=== PATIENT | male | born 1975 | race Caucasian/White ===

== ENCOUNTER 2022-09-18 10:12 | Outpatient (REF) | payer OTHER, SELFPAY ==
--- NOTE | ~2022-09-18 | XR_ITS ---
EXAMINATION: XR ANKLE, LEFT CLINICAL INFORMATION: Pain in left ankle and joints of the left foot COMPARISON: None available. TECHNIQUE: AP, lateral, and mortise views of the left ankle. FINDINGS: Osseous alignment is anatomic. No acute fracture is seen. There is hypertrophic spurring of the medial and lateral malleoli. There is additional spurring at the superior aspect of the talus. Posterior calcaneal spur is noted. Degenerative changes with joint space narrowing and spurring in the visualized mid foot. Mild soft tissue swelling at the ankle. There is nonspecific faint calcification in the plantar aspect of the proximal foot, possibly myositis ossificans. XR/XR ankle LT min 3V IMPRESSION: No acute osseous findings. Chronic appearing and degenerative changes as noted above.
[2022-09-18 10:32] LABS: MANUAL DIFF FLAG NO
[2022-09-18 10:51] LABS: Basophils Absolute Auto 0.1 X10*3/uL (0.0-0.2); Basophils Percent Auto 0.5 % (0-2); Eosinophils Absolute Auto 0.1 X10*3/uL (0.0-0.4); Eosinophils Percent Auto 0.4 % (0-4); Hematocrit 54.7 % (42.0-52.0); Hemoglobin 18.3 g/dl (14.0-18.0); Imm Gran Abs Auto 0.05 X10*3/uL (0.00-0.03); Imm Gran Pct Auto 0.4 % (0.0-0.4); Lymphocytes Absolute Auto 2.9 X10*3/uL (1.2-4.9); Lymphocytes Percent Auto 20.3 % (20-40); Mean Corpuscular HGB Conc 33.5 g/dl (31.0-36.0); Mean Corpuscular Hemoglobin 29.5 pg (27.0-33.0); Mean Corpuscular Volume 88.2 fL (80.0-98.0); Mean Platelet Volume 11.1 fL (9.4-12.4); Monocytes Percent Auto 7.2 % (2-11); Neutrophils Absolute Auto 10.1 x10*3/uL (2.0-8.3); Neutrophils Percent Auto 71.2 % (45-73); Platelet Count 261 X10*3/uL (160-400); Red Cell Distribution Width 12.7 % (11.0-16.0); White Blood Count 14.1 X10*3/uL (4.8-10.8)
[2022-09-18 11:17] LABS: Alanine Aminotransferase 27 U/L (0-40); Alkaline Phosphatase 55 U/L (39-117); Anion Gap 16 (12-20); Aspartate Amino Transferase 15 U/L (5-37); Bilirubin Total 0.9 mg/dL (0.0-1.0); Blood Urea Nitrogen 10 mg/dL (9-16); Calcium 10.7 mg/dL (8.4-10.2); Carbon Dioxide 28 mmol/L (22-29); Chloride 103 mmol/L (96-108); Estimated Glomerular Filt Rate > 60; Glucose Random 114 mg/dL (60-115); Potassium 5.1 mmol/L (3.3-5.1); Sodium 142 mmol/L (135-145); Total Protein 8.4 g/dL (6.5-8.0); Uric Acid 7.6 mg/dL (3.4-7.0)
[2022-09-18 11:39] LABS: Erythrocyte Sedimentation Rate 5 MM/HR (0-15)
== END 2022-09-18 10:13 | disposition home or self-care (01) ==
LOC: HO.LAB 10:12
PROVIDERS: PCP Family Medicine; Visit Provider Family Medicine
DX: Z00.00 Encounter for general adult medical examination without abnormal findings (principal); M25.572 Pain in left ankle and joints of left foot
CPT/HCPCS: 36415; 73610; 80053; 84550; 85025; 85652

== ENCOUNTER 2022-09-22 10:29 | Outpatient (REF) | payer OTHER, SELFPAY ==
[2022-09-22 11:36] LABS: MANUAL DIFF FLAG NO
[2022-09-22 11:45] LABS: Basophils Absolute Auto 0.1 X10*3/uL (0.0-0.2); Basophils Percent Auto 0.7 % (0-2); Eosinophils Absolute Auto 0.2 X10*3/uL (0.0-0.4); Hematocrit 52.7 % (42.0-52.0); Hemoglobin 18.1 g/dl (14.0-18.0); Imm Gran Abs Auto 0.09 X10*3/uL (0.00-0.03); Imm Gran Pct Auto 0.6 % (0.0-0.4); Lymphocytes Absolute Auto 4.8 X10*3/uL (1.2-4.9); Mean Corpuscular HGB Conc 34.3 g/dl (31.0-36.0); Mean Corpuscular Hemoglobin 30.3 pg (27.0-33.0); Mean Corpuscular Volume 88.1 fL (80.0-98.0); Mean Platelet Volume 11.5 fL (9.4-12.4); Monocytes Absolute Auto 1.3 X10*3/uL (0.1-1.2); Monocytes Percent Auto 8.4 % (2-11); Neutrophils Absolute Auto 9.5 x10*3/uL (2.0-8.3); Neutrophils Percent Auto 59.3 % (45-73); Platelet Count 290 X10*3/uL (160-400); Red Blood Count 5.98 X10*6/uL (4.60-5.80); Red Cell Distribution Width 12.7 % (11.0-16.0)
[2022-09-22 12:36] LABS: Alanine Aminotransferase 27 U/L (0-40); Albumin Level 4.7 g/dL (3.5-5.0); Alkaline Phosphatase 51 U/L (39-117); Anion Gap 15 (12-20); Aspartate Amino Transferase 14 U/L (5-37); Bilirubin Total 0.7 mg/dL (0.0-1.0); Blood Urea Nitrogen 13 mg/dL (9-16); Calcium 9.9 mg/dL (8.4-10.2); Carbon Dioxide 28 mmol/L (22-29); Chloride 102 mmol/L (96-108); Estimated Glomerular Filt Rate > 60; Glucose Random 89 mg/dL (60-115); Potassium 4.4 mmol/L (3.3-5.1); Sodium 141 mmol/L (135-145); Total Protein 7.9 g/dL (6.5-8.0)
== END 2022-09-22 10:30 | disposition home or self-care (01) ==
LOC: HO.WFDLDS 10:29
PROVIDERS: Visit Provider Family Medicine
DX: Z00.00 Encounter for general adult medical examination without abnormal findings (principal); M25.572 Pain in left ankle and joints of left foot
CPT/HCPCS: 36415; 80053; 84550; 85025

== ENCOUNTER 2023-02-24 14:22 | Outpatient (REF) | payer OTHER, SELFPAY ==
--- NOTE | ~2023-02-24 | XR_ITS ---
EXAMINATION: XR LUMBOSACRAL SPINE CLINICAL INFORMATION: Low back pain COMPARISON: None available. TECHNIQUE: Three views of the lumbosacral spine. FINDINGS: There is mild levoscoliosis. There is mild wedge-shaped deformity of L1 vertebral body with marginal spurring may be related to fracture of indeterminate age. There is mild narrowing of L1-L2 and L2-L3 intervertebral disc space and marginal spurring of L1-L3. There is no evidence of spondylolysis or spondylolisthesis. Pedicles are preserved. XR/XR lumbar spine 2-3V IMPRESSION: Mild degenerative changes at the level of L1-L2 and L2-L3. Mild wedge-shaped deformity of L1 vertebral body of indeterminate age.
--- NOTE | ~2023-02-24 | XR_ITS ---
EXAMINATION: XR THORACOLUMBAR SPINE CLINICAL INFORMATION: Dorsalgia COMPARISON: None available. TECHNIQUE: AP and lateral and swimmer's view of thoracic spine FINDINGS: The vertebral alignment is normal. No intrinsic bony abnormality. The disc heights and neural foramina are well maintained. The endplates and posterior elements are normal. No fracture or subluxation. The surrounding prevertebral soft tissues are unremarkable. XR/XR thoracic spine 2V IMPRESSION: No compression fractures or subluxations are identified. The disc spaces are preserved. No endplate changes are seen. The prevertebral soft tissues are normal. The foramina are patent.
[2023-02-24 14:35] LABS: MANUAL DIFF FLAG NO
[2023-02-24 14:45] LABS: Basophils Absolute Auto 0.1 X10*3/uL (0.0-0.2); Basophils Percent Auto 0.9 % (0-2); Eosinophils Absolute Auto 0.3 X10*3/uL (0.0-0.4); Eosinophils Percent Auto 2.6 % (0-4); Hemoglobin 19.2 g/dl (14.0-18.0); Imm Gran Abs Auto 0.03 X10*3/uL (0.00-0.03); Imm Gran Pct Auto 0.3 % (0.0-0.4); Lymphocytes Absolute Auto 3.1 X10*3/uL (1.2-4.9); Lymphocytes Percent Auto 29.3 % (20-40); Mean Corpuscular HGB Conc 34.7 g/dl (31.0-36.0); Mean Corpuscular Hemoglobin 30.8 pg (27.0-33.0); Mean Corpuscular Volume 88.8 fL (80.0-98.0); Mean Platelet Volume 11.7 fL (9.4-12.4); Monocytes Absolute Auto 0.8 X10*3/uL (0.1-1.2); Neutrophils Absolute Auto 6.4 x10*3/uL (2.0-8.3); Neutrophils Percent Auto 59.9 % (45-73); Platelet Count 246 X10*3/uL (160-400); Red Blood Count 6.24 X10*6/uL (4.60-5.80); Red Cell Distribution Width 13.1 % (11.0-16.0); White Blood Count 10.7 X10*3/uL (4.8-10.8)
[2023-02-24 14:47] LABS: Hematocrit 55.4 % (42.0-52.0)
[2023-02-24 15:07] LABS: Appearance Urine Clear; Color Urine Yellow; Glucose Urine UA Negative (Negative); Leukocyte Esterase Urine Negative (Negative); Nitrite Urine Negative (Negative); PH 8.5 (5.0-9.0); Specific Gravity - Urine 1.015 (1.005-1.025); Urine Blood Negative (Negative); Urine Ketones Negative (Negative); Urine Protein Negative (Neg-Trace)
[2023-02-24 15:23] LABS: Alanine Aminotransferase 43 U/L (0-40); Albumin Level 4.7 g/dL (3.5-5.0); Alkaline Phosphatase 45 U/L (39-117); Anion Gap 13 (12-20); Aspartate Amino Transferase 20 U/L (5-37); Bilirubin Total 0.6 mg/dL (0.0-1.0); Blood Urea Nitrogen 10 mg/dL (9-16); Calcium 10.6 mg/dL (8.4-10.2); Carbon Dioxide 28 mmol/L (22-29); Chloride 106 mmol/L (96-108); Cholesterol 162 mg/dL (<200); Estimated Glomerular Filt Rate > 60; Glucose Fasting 121 mg/dL (60-99); HDL Cholesterol 27 mg/dL (>40); LDL Cholesterol Calculated 84 mg/dL (<100); Potassium 4.1 mmol/L (3.3-5.1); Sodium 143 mmol/L (135-145); Triglycerides 258 mg/dL (<150); Uric Acid 9.5 mg/dL (3.4-7.0)
[2023-02-24 15:32] LABS: Prostate Specific Antigen Scr 0.59 ng/mL (<0.05-4.0)
[2023-02-24 15:38] LABS: TSH reflex Free T4 1.12 uIU/mL (0.32-4.0)
[2023-02-24 17:04] LABS: Creatinine Urine 178.29 mg/dL; Microalbum/Creatinine Ratio Ur 7.2 ug/mg cr (<30)
== END 2023-02-24 14:23 | disposition home or self-care (01) ==
LOC: HO.LAB 14:22
PROVIDERS: PCP Family Medicine; Visit Provider Family Medicine
DX: M54.9 Dorsalgia, unspecified (principal); Z12.5 Encounter for screening for malignant neoplasm of prostate; Z00.00 Encounter for general adult medical examination without abnormal findings; I10 Essential (primary) hypertension; M10.9 Gout, unspecified
CPT/HCPCS: 36415; 72070; 72100; 80053; 80061; 81003; 82043; 84153; 84443; 84550; 85025

== ENCOUNTER 2023-02-26 13:27 | Outpatient (AMB) | payer OTHER, SELFPAY ==
[2023-02-26 13:37] VITALS: BP 124/72; PULSE 99; O2SAT 96; BMI 39.9
--- NOTE | 2023-02-26 13:37 | A.OFFPC_ITS ---
Vital Signs 02/26/23 13:37 Height 6 ft 2 in Weight 311 lb 2 oz BMI 39.9 BP 124/72 Blood Pressure Location Lt brachial Position Sitting Pulse 99 Pulse Source Pulse Oximeter Pulse Oximetry (%) 96 Oxygen Delivery Method Room Air Intake Visit Reasons: worsening pain Intake Note: Patient is here with worsening pain, going to hip joint into groin, worse in the morning, Thursday and Thursday hurt all day, and was in pain in the morning, but then as the day does on he feels better. 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 Allergies Penicillins Allergy (Severe, Verified 02/26/23 13:43) Anaphylaxis opiates Adverse Reaction (Severe, Uncoded 02/26/23 13:45) addiction temptaion Tobacco use date assessed: 02/26/23 Dental Screening Dental Screen Date: 02/26/23 Did you have a dental visit in the last 12 months?: No Did you have a dental problem in the last 6 months where you did not have access to dental care?: No Was dental information given to patient?: Yes HPI worsening pain HPI Details 47 y/o male presents with complaints of worsening pain. Last labs drawn 02/24/23. Uric acid level worsened from 8.0 to 9.5 mg/dL. Elevated ALT of 43. Elevated Triglycerides 258. TC 162. LDL 84. HDL low at 27. Pt reports worsening pain going to hip joint and into groin. 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 Pt has complaints of a fungal toenail infection. HPI Comments History of Present Illness Details Documentation assistance for Dell Rice MD, was provided by Jalil Cleary, [employer] on 02/26/2023 1:46 PM LYN. I, Dr. Rice, have read, observed, and verified documentation. [facility] Medical History No pertinent past medical history Surgical History No pertinent past surgical history Family History Paternal Grandfather Diabetes Father Lymph node cancer Social History Household Members Other:: mother Housing: House Alcohol intake: never Patient Tobacco Use Status: Current everyday Tobacco user Cigarettes Per Day: 10 e-Cigarette/Vaping Use: Never Used Substance Use Type: Marijuana service: No Current occupational status: unemployed Current occupation: [employer] Cognitive needs: No Hearing needs: No Vision needs: No Review of Systems Const Denies chills, Denies fatigue, Denies fever(s), Denies headache(s) and Denies weakness ENT Denies dizziness and Denies headache(s) Card Denies dyspnea Resp Denies cough, Denies dyspnea, Denies wheezing and Denies other (shortness of breath) Musc Denies numbness and Denies tingling Neuro Denies dizziness, Denies headache(s), Denies numbness, Denies tingling and Denies weakness Psych Denies anxiety and Denies depression Endo Denies fatigue Aller/Immun Denies wheezing Physical exam (Primary Care) Vital Signs: Last Vital Signs Pulse 99 02/26/23 13:37 BP 124/72 02/26/23 13:37 Pulse Ox 96 02/26/23 13:37 Oxygen Delivery Method Room Air 02/26/23 13:37 BMI result Body Mass Index 39.9 Tobacco/Smoking Status: Tobacco use Status Tobacco use date assessed 12/23/22 02/26/23 13:46 Patient Tobacco Use Status Current everyday Tobacco 02/26/23 13:46 e-Cigarette/Vaping Use Never Used 02/26/23 13:48 Const General: well developed; No acute distress Nutritional Appearance: obese Orientation/consciousness: patient oriented x3 HENMT Head: Yes normocephalic and Yes atraumatic Eyes General: appearance normal, both eyes and all related structures Pupils: Equal, round and reactive pupils present EOM: EOMs intact bilaterally Resp Effort & Inspection: normal respiratory effort Neuro General: patient oriented x3 and gait normal Cranial nerves: Yes Equal, round and reactive pupils present Psych Affect: normal affect Assessment and Plan Assessment & Plan (1) Left groin pain: Code(s): R10.32 - Left lower quadrant pain Plan: This appears to be a muscular strain Can use meloxicam after prednisone taper and will start physical therapy (2) Gout: Code(s): M10.9 - Gout, unspecified Plan: Starting prednisone taper and allopurinol (3) Back pain: Code(s): M54.9 - Dorsalgia, unspecified Plan: Ongoing severe back pain. X rays show degenerative changes. Will give him a prednisone taper and he can and then resume meloxicam (4) Fungal toenail infection: Code(s): B35.1 - Tinea unguium Plan: Refilled terbinafine and will refer to Podiatry Orders: Orders PT Evaluation and Treatment Today R10.32 - Left lower quadrant pain Referrals Podiatry Referral B35.1 - Tinea unguium Medications: New prednisone 4 tabs daily for 4 days, 3 tabs daily for 2 days, 2 tabs daily for 2 days, 1 tab daily for 2 days PO daily; 28 tabs 0RF 10 days allopurinol 200 mg (2 x 100 mg) PO DAILY 60 tabs 2RF 30 days Refilled meloxicam 15 mg PO DAILY 30 tabs 2RF 30 days M25.572 - Pain in left ankle and joints of left foot terbinafine HCl 1% (Antifungal (terbinafine)) 1 appl topical BID 30 grams 2RF 30 days Coding Level of Care Code Est Pt Level 4 (81934) Diagnoses Left groin pain R10.32 Gout M10.9 Back pain M54.9 Fungal toenail infection B35.1
== END 2023-02-26 14:17 | disposition home or self-care (01) ==
PROVIDERS: PCP Family Medicine; Visit Provider Family Medicine
DX: R10.32 Left lower quadrant pain (principal); M10.9 Gout, unspecified; M54.9 Dorsalgia, unspecified; B35.1 Tinea unguium
CPT/HCPCS: 99214

== ENCOUNTER → 2024-08-10 15:09 | Outpatient (BNVA) | payer OTHER, SELFPAY | PROVIDERS: PCP Family Medicine; Visit Provider Physician Assistant | DX: Z00.00 Encounter for general adult medical examination without abnormal findings (principal); M10.9 Gout, unspecified; R03.0 Elevated blood-pressure reading, without diagnosis of hypertension; E78.5 Hyperlipidemia, unspecified | CPT/HCPCS: 96127 ==

== ENCOUNTER 2024-08-20 09:46 | Outpatient (REF) | payer OTHER, SELFPAY ==
[2024-08-20 09:59] LABS: MANUAL DIFF FLAG NO
[2024-08-20 10:42] LABS: Basophils Absolute Auto 0.1 X10*3/uL (0.0-0.2); Basophils Percent Auto 1.7 % (0-2); Eosinophils Absolute Auto 0.4 X10*3/uL (0.0-0.4); Eosinophils Percent Auto 5.3 % (0-4); Hemoglobin 18.2 g/dl (14.0-18.0); Imm Gran Abs Auto 0.03 X10*3/uL (0.00-0.03); Imm Gran Pct Auto 0.4 % (0.0-0.4); Lymphocytes Absolute Auto 2.4 X10*3/uL (1.2-4.9); Mean Corpuscular Hemoglobin 31.1 pg (27.0-33.0); Mean Corpuscular Volume 88.7 fL (80.0-98.0); Monocytes Absolute Auto 0.8 X10*3/uL (0.1-1.2); Monocytes Percent Auto 10.3 % (2-11); Neutrophils Absolute Auto 4.2 x10*3/uL (2.0-8.3); Neutrophils Percent Auto 52.3 % (45-73); Platelet Count 222 X10*3/uL (160-400); Red Blood Count 5.86 X10*6/uL (4.60-5.80); Red Cell Distribution Width 12.6 % (11.0-16.0); White Blood Count 8.1 X10*3/uL (4.8-10.8)
[2024-08-20 10:48] LABS: Appearance Urine Clear; Color Urine Yellow; Glucose Urine UA Negative (Negative); Leukocyte Esterase Urine Negative (Negative); Nitrite Urine Negative (Negative); PH 5.5 (5.0-9.0); Specific Gravity - Urine 1.015 (1.005-1.025); Urine Blood Negative (Negative); Urine Ketones Negative (Negative); Urine Protein Negative (Neg-Trace)
[2024-08-20 11:12] LABS: Alanine Aminotransferase 42 U/L (0-40); Albumin Level 4.5 g/dL (3.5-5.0); Alkaline Phosphatase 54 U/L (39-117); Anion Gap 14 (12-20); Aspartate Amino Transferase 28 U/L (5-37); Bilirubin Total 0.6 mg/dL (0.0-1.0); Blood Urea Nitrogen 16 mg/dL (9-16); Calcium 10.3 mg/dL (8.4-10.2); Carbon Dioxide 27 mmol/L (22-29); Chloride 106 mmol/L (96-108); Cholesterol 167 mg/dL (<200); Estimated Glomerular Filt Rate > 60; Glucose Fasting 108 mg/dL (60-99); HDL Cholesterol 26 mg/dL (>40); LDL Cholesterol Calculated 99 mg/dL (<100); Potassium 4.8 mmol/L (3.3-5.1); Sodium 142 mmol/L (135-145); Total Protein 8.4 g/dL (6.5-8.0); Triglycerides 212 mg/dL (<150)
[2024-08-20 11:27] LABS: Prostate Specific Antigen Scr 0.57 ng/mL (<0.05-4.0)
[2024-08-20 11:32] LABS: TSH reflex Free T4 1.26 uIU/mL (0.32-4.0)
[2024-08-20 12:04] LABS: Uric Acid 7.9 mg/dL (3.4-7.0)
== END 2024-08-20 09:47 | disposition home or self-care (01) ==
LOC: HO.LAB 09:46
PROVIDERS: PCP Family Medicine; Visit Provider Physician Assistant
DX: Z00.00 Encounter for general adult medical examination without abnormal findings (principal); M10.9 Gout, unspecified; R03.0 Elevated blood-pressure reading, without diagnosis of hypertension; E78.5 Hyperlipidemia, unspecified; Z13.220 Encounter for screening for lipoid disorders; Z01.89 Encounter for other specified special examinations; Z12.5 Encounter for screening for malignant neoplasm of prostate
CPT/HCPCS: 36415; 80053; 80061; 81003; 84153; 84443; 84550; 85025

== ENCOUNTER 2024-08-24 14:11 | Outpatient (AMB) | payer OTHER, SELFPAY ==
--- NOTE | 2024-08-24 14:18 | MHC.PC.OV ---
Vital Signs 08/24/24 14:20 08/24/24 14:27 Height 6 ft 2 in Weight 329 lb 8 oz BMI 42.3 BP 154/90 H 152/92 H Blood Pressure Location Lt brachial Lt brachial Position Sitting Sitting Respiration 18 Pulse 101 H Pulse Source Pulse Oximeter Pulse Oximetry (%) 96 Oxygen Delivery Method Room Air Intake Visit Reasons: bp and labs Intake Note: Follow up blood pressure and lab results. Allergies Penicillins Allergy (Severe, Verified 08/24/24 14:20) Anaphylaxis opiates Adverse Reaction (Severe, Uncoded 08/24/24 14:20) addiction temptaion Medication List - Last Reconciled 08/24/24 by Valarie Roberts PA-C allopurinol 200 mg (2 x 100 mg) PO DAILY 90 days Tobacco use date assessed: 08/10/24 Dental Screening Dental Screen Date: 02/26/23 HPI bp and labs HPI Details Patient is a 49-year-old male with a significant past history hyperlipidemia substance abuse, smoker, gout presenting today for a follow up. He normally follows with Dr. Rice. CV: Blood pressure today in the office is elevated at 154/90. He has never been on antihypertensives before. At our last visit he was referred for a sleep study for suspected sleep apnea and is scheduled for October. Psych: Currently off of methadone for a year and a half. He does not like the idea of taking any medications. He is still smoking marijuana and tobacco. States that he wants to stop smoking cigarettes but does not want any medication for this. He is going to look into hypnosis. Musculoskeletal: He is on allopurinol for management of gout. Last uric acid was elevated. Endo: Last A1c came back at 5.8. Blood sugar has been elevated intermittently since 2022. States that he is [place] and eats a lot of carbohydrates. Colonoscopy: Overdue-was referred [facility] Medical History (Updated 08/24/24 @ 14:58 by Valarie Roberts PA-C) No history of major surgery within 1 month No pertinent past medical history Surgical History No pertinent past surgical history Family History Paternal Grandfather Diabetes Father Lymph node cancer Social History (Updated 08/24/24 @ 14:20 by Arielle Monzon CMA) Household Members Other:: mother Housing: House Alcohol intake: current Comment: 1-2 time a year Patient Tobacco Use Status: Current everyday Tobacco user Cigarettes Per Day: 10 Years Smoked: 18 e-Cigarette/Vaping Use: Never Used Substance Use Type: Marijuana service: No Current occupational status: unemployed Current occupation: [employer] Cognitive needs: No Hearing needs: No Vision needs: No Questionnaire Thrive Questionnaire Date Thrive assessed: 07/20/24 I am a: Patient What is your living situation today?: I have a steady place to live Within the past 12 months, did the food you bought not last and you didn't have the money to get more?: Never true Within the past 12 months, did you worry whether your food would run out before you got money to buy more?: Never true Do you have trouble paying for medicines?: No Do you have trouble getting transportation to medical appointments?: No Do you have trouble paying your heating and electricity bill?: No Do you have trouble taking care of your child, family member or friend?: No Do you have trouble with day-to-day activities such as bathing, preparing meals, shopping, managing finances, etc.?: No Are you currently unemployed and looking for a job?: No Are you interested in more education?: No Please select the resources that you would like help with: None Currently or been in a relationship where the following occur: No concerns reported THRIVE Score: 0 NEETA-7 AMB Questionnaire NEETA-7 Date NEETA - 7 assessed: 08/10/24 Source: Developed by Drs. Eron Gonzalez, Bhakti Neal, Vijay Wood and colleagues, with an educational jayesh from [employer]. Physical exam (Primary Care) Vital Signs: Last Vital Signs Pulse 101 H 08/24/24 14:20 Resp 18 08/24/24 14:20 BP 154/90 H 08/24/24 14:20 Pulse Ox 96 08/24/24 14:20 Oxygen Delivery Method Room Air 08/24/24 14:20 BMI result Body Mass Index 42.3 Tobacco/Smoking Status: Tobacco use Status Tobacco use date assessed 08/10/24 08/24/24 14:24 Patient Tobacco Use Status Current everyday Tobacco 08/24/24 14:24 e-Cigarette/Vaping Use Never Used 08/24/24 14:24 Thrive Assessment: Date of Thrive Assessment Date Thrive assessed 07/20/24 08/24/24 14:24 Currently or been in a relationship where the following occur: No concerns reported Const Orientation/consciousness: patient oriented x3 HENMT Ears: hearing grossly normal bilaterally Neck Thyroid: Thyroid normal Lymphatic: no lymphadenopathy noted Resp Auscultation: clear to auscultation bilaterally Cardio Rate: regular rate Rhythm: regular rhythm Heart sounds: S1 normal heart sound present and S2 normal heart sound present GI Inspection: Yes normal to inspection Palpation (GI): Soft to palpation and Other GI palpation findings present (nontender, no cva tenderness) Auscultation: normoactive bowel sounds Rectal Exam - Male: Yes deferred Skin General skin exam: no rashes or lesions noted Neuro General: patient oriented x3, gait normal and no focal motor deficits Results AMB Hemoglobin A1c AMB Hemoglobin A1c 5.8 % Last Edit by Arielle Monzon CMA on 08/24/24 14:58 Results Reviewed Results Reviewed: Laboratory Tests 08/20/24 09:58 WBC 8.1 RBC 5.86 H Hgb 18.2 H Plt Count 222 Sodium 142 Potassium 4.8 Chloride 106 Carbon Dioxide 27 Anion Gap 14 BUN 16 Creatinine 0.98 Estimated GFR > 60 Uric Acid 7.9 H Calcium 10.3 H Total Bilirubin 0.6 AST 28 ALT 42 H Alkaline Phosphatase 54 Total Protein 8.4 H Albumin 4.5 Triglycerides 212 H Cholesterol 167 LDL Cholesterol, Calc 99 HDL Cholesterol 26 L PSA Screen 0.57 TSH 1.26 Coding Level of Care Code Est Pt Level 4 (30898) Complex EM visit Add On G2211 Diagnoses Dyslipidemia E78.5 Elevated LFTs R79.89 HTN (hypertension) I10 Prediabetes R73.03 Assessment & Plan Assessment & Plan (1) Dyslipidemia: Code(s): E78.5 - Hyperlipidemia, unspecified Category: Medical Plan: We will monitor. He is going to work on a low-fat diet. I have referred him to nutrition. (2) Elevated LFTs: Code(s): R79.89 - Other specified abnormal findings of blood chemistry Category: Medical Plan: Labs ordered today. We will monitor. Ultrasound ordered. (3) HTN (hypertension): Code(s): I10 - Essential (primary) hypertension Category: Medical Plan: Elevated. We will start on lisinopril. Discussed risks and benefits and adverse effects of the medication. We will rechecked blood pressure in a few weeks. (4) Prediabetes: Code(s): R73.03 - Prediabetes Category: Medical Plan: A1c 5.8 today. Working on reducing carbohydrate and sugar intake. Referral to house calls nurse practitioner. Orders: Orders Ferritin Today E78.5 - Hyperlipidemia, unspecified, I10 - Essential (primary) hypertension, R79.89 - Other specified abnormal findings of blood chemistry Liver Panel Today E78.5 - Hyperlipidemia, unspecified, I10 - Essential (primary) hypertension, R79.89 - Other specified abnormal findings of blood chemistry Gamma Glutamyl Transpeptidase Today E78.5 - Hyperlipidemia, unspecified, I10 - Essential (primary) hypertension, R79.89 - Other specified abnormal findings of blood chemistry Hepatitis B Surface Antigen Today E78.5 - Hyperlipidemia, unspecified, I10 - Essential (primary) hypertension, R79.89 - Other specified abnormal findings of blood chemistry AMB Hemoglobin A1c Today E11.65 - Type 2 diabetes mellitus with hyperglycemia Complete Blood Count Auto Diff Today E78.5 - Hyperlipidemia, unspecified, I10 - Essential (primary) hypertension, R79.89 - Other specified abnormal findings of blood chemistry DNA Analysis Hemochromatosis Today E78.5 - Hyperlipidemia, unspecified, I10 - Essential (primary) hypertension, R79.89 - Other specified abnormal findings of blood chemistry IRON PROFILE Today E78.5 - Hyperlipidemia, unspecified, I10 - Essential (primary) hypertension, R79.89 - Other specified abnormal findings of blood chemistry US abdomen comp w elastography Today E78.5 - Hyperlipidemia, unspecified, I10 - Essential (primary) hypertension, R79.89 - Other specified abnormal findings of blood chemistry Hepatitis C Antibody Today E78.5 - Hyperlipidemia, unspecified, I10 - Essential (primary) hypertension, R79.89 - Other specified abnormal findings of blood chemistry Referrals [employer] Nutrition Referral E78.5 - Hyperlipidemia, unspecified, I10 - Essential (primary) hypertension, R73.03 - Prediabetes, R79.89 - Other specified abnormal findings of blood chemistry Medications: New allopurinol 300 mg PO DAILY 90 tabs 2RF lisinopril 10 mg PO DAILY 90 tabs 0RF Discontinued allopurinol Discontinued Reason: Doctor's Order 200 mg (2 x 100 mg) PO DAILY 90 days 180 tabs 3RF Patient Instructions: Your labs show that you are a prediabetic. This means that you are at risk for developing diabetes. You need to work on reducing your carbohydrate and sugar intake as we talked about. Your liver function tests were also a little bit elevated so I do want you to avoid processed foods, fried foods, greasy foods as well and alcohol. I have put in a referral to the house calls nurse practitioner. I have ordered a liver ultrasound and additional labs to look at the liver test. I am also testing you for excess iron. You can do your blood work today as it does not need to be fasting. I am starting you on lisinopril which is a blood pressure medication. You take it once a day around the same time each day. I will see you back in a few weeks to make sure your blood pressure is responding. If for some reason you are unable to tolerate this medication, call me sooner. I have increased your allopurinol as well given your uric acid was 7.9 which is still considered high.
[2024-08-24 14:20] VITALS: BP 154/90; PULSE 101; RESP 18; O2SAT 96; BMI 42.3
[2024-08-24 14:27] VITALS: BP 152/92
== END 2024-08-24 15:07 | disposition home or self-care (01) ==
PROVIDERS: PCP Family Medicine; Visit Provider Physician Assistant
DX: E78.5 Hyperlipidemia, unspecified (principal); R79.89 Other specified abnormal findings of blood chemistry; I10 Essential (primary) hypertension; R73.03 Prediabetes; E11.65 Type 2 diabetes mellitus with hyperglycemia

== ENCOUNTER → 2024-08-24 14:11 | Outpatient (BNVA) | payer OTHER, SELFPAY | PROVIDERS: PCP Family Medicine; Visit Provider Physician Assistant | DX: R73.03 Prediabetes (principal); E78.5 Hyperlipidemia, unspecified; R79.89 Other specified abnormal findings of blood chemistry; I10 Essential (primary) hypertension; M10.9 Gout, unspecified; Z79.899 Other long term (current) drug therapy | CPT/HCPCS: 83036 ==

== ENCOUNTER 2024-08-24 15:25 | Outpatient (REF) | payer OTHER, SELFPAY ==
[2024-08-24 18:04] LABS: MANUAL DIFF FLAG NO
[2024-08-24 18:30] LABS: Basophils Absolute Auto 0.1 X10*3/uL (0.0-0.2); Basophils Percent Auto 1.4 % (0-2); Eosinophils Absolute Auto 0.4 X10*3/uL (0.0-0.4); Eosinophils Percent Auto 4.6 % (0-4); Hematocrit 50.3 % (42.0-52.0); Hemoglobin 17.5 g/dl (14.0-18.0); Imm Gran Abs Auto 0.03 X10*3/uL (0.00-0.03); Imm Gran Pct Auto 0.4 % (0.0-0.4); Lymphocytes Absolute Auto 2.8 X10*3/uL (1.2-4.9); Lymphocytes Percent Auto 35.4 % (20-40); Mean Corpuscular HGB Conc 34.8 g/dl (31.0-36.0); Mean Corpuscular Hemoglobin 30.8 pg (27.0-33.0); Mean Corpuscular Volume 88.4 fL (80.0-98.0); Mean Platelet Volume 12.4 fL (9.4-12.4); Monocytes Absolute Auto 0.8 X10*3/uL (0.1-1.2); Monocytes Percent Auto 10.2 % (2-11); Neutrophils Absolute Auto 3.8 x10*3/uL (2.0-8.3); Platelet Count 230 X10*3/uL (160-400); Red Blood Count 5.69 X10*6/uL (4.60-5.80); Red Cell Distribution Width 12.7 % (11.0-16.0); White Blood Count 7.8 X10*3/uL (4.8-10.8)
[2024-08-24 18:32] LABS: Alanine Aminotransferase 50 U/L (0-40); Albumin Level 4.5 g/dL (3.5-5.0); Aspartate Amino Transferase 32 U/L (5-37); Bilirubin Direct 0.1 mg/dL (0.0-0.5); Bilirubin Total 0.3 mg/dL (0.0-1.0); Gamma Glutamyl Transpeptidase 36 U/L (11-51); Iron 129 mcg/dL (45-160); Percent Iron Saturation 41 % (15-50); Total Iron Binding Capacity 313 mcg/dL (228-428); Total Protein 8.3 g/dL (6.5-8.0); Unsaturated Iron Binding 184 ug/dL
[2024-08-24 18:46] LABS: Ferritin 289 ng/mL (20-250)
[2024-08-24 19:40] LABS: Alkaline Phosphatase 51 U/L (39-117)
[2024-08-25 08:07] LABS: Hepatitis B Surface Antigen Negative (Negative); ~HepC Num1 0.07 S/CO (0.00-0.79); ~Hepatitis C Antibody Nonreactive (Nonreactive)
== END 2024-08-24 15:26 | disposition home or self-care (01) ==
LOC: HO.WFDLDS 15:25
PROVIDERS: Visit Provider Physician Assistant
DX: I10 Essential (primary) hypertension (principal); R79.89 Other specified abnormal findings of blood chemistry; E78.5 Hyperlipidemia, unspecified
CPT/HCPCS: 36415; 80076; 81256; 82728; 82977; 83540; 85025; 86803; 87340

== ENCOUNTER 2024-09-26 08:37 | Outpatient (REF) | payer OTHER, SELFPAY ==
--- NOTE | ~2024-09-26 | US_ITS ---
EXAMINATION: US ABDOMEN COMPLETE WITH LIVER ELASTOGRAPHY HISTORY: elevated LFTs TECHNIQUE: Real-time grayscale ultrasound imaging of the abdomen was performed and images were reviewed. COMPARISON: There are no prior studies for comparison. FINDINGS: Liver: The right lobe of the liver measures 21.5 cm in size. The left lobe of the liver measures 12.0 cm in size. The liver demonstrates increased echotexture, consistent with steatosis. No focal mass or intrahepatic biliary ductal dilatation is identified. There is normal hepatopedal flow in the portal vein. Ultrasound elastography of the liver was performed with 10 separate measurements of the liver parenchyma with the patient in the supine position. Measurements were obtained approximately 2 cm below Aziza's capsule and perpendicular to the capsule. Images are of satisfactory quality. The median shear wave velocity is 1.45 m/s. The interquartile range/median (IQR/median) is 0.41. Gallbladder and biliary tree: There is a shadowing calculus in the gallbladder. There is no wall thickening or pericholecystic fluid. There is no sonographic Anglin sign. The common bile duct is normal in caliber measuring 3 mm. Kidneys: The right kidney measures 13.0 cm in length. The left kidney measures 13.4 cm in length. The kidneys are unremarkable, without evidence of masses, hydronephrosis, or calculi. Pancreas: The pancreatic head, neck, and body are unremarkable. The pancreatic tail is obscured by bowel gas. Spleen: The spleen is normal in size and contour, measuring 12.4 cm in length. Abdominal aorta and inferior vena cava: The visualized portions of the abdominal aorta and inferior vena cava are normal in caliber. There is no free fluid in the abdomen. US/US abdomen comp w elastography IMPRESSION: Hepatomegaly and hepatic steatosis. Cholelithiasis. The median shear wave velocity in the liver is 1.45 m/s, corresponding to a median liver stiffness of 6.69 kPa. The IQR/median value is 0.41. This is indicative of a poor quality data set, and the estimated liver stiffness may be unreliable. Findings are indicative of a low elastography value which rules out advanced chronic liver disease in asymptomatic patients. REFERENCE: Society of Radiologists in Ultrasound Liver Stiffness Thresholds (2019): LIVER STIFFNESS THRESHOLDS: *Shear wave velocity less than 1.3 m/s (Liver Stiffness equal or less than 5 kPa): High probability of being normal. *Shear wave velocity less than 1.7 m/s (Liver Stiffness less than 9 kPa): In the absence of other known clinical signs, rules out compensated advanced chronic liver disease. *Shear wave velocity between 1.7-2.1 m/s (Liver Stiffness 9-13 kPa): Suggestive of compensated advanced chronic liver disease but need further test for confirmation. *Shear wave velocity between 2.1-2.4 m/s (Liver Stiffness 13-17 kPa): Rules in compensated advanced chronic liver disease. *Shear wave velocity greater than 2.4 m/s (Liver Stiffness over 17 kPa): Suggestive of clinically significant portal hypertension. QUALITY OF DATA SET: *IQR/Median value equal or less than 0.15 implies a quality data set. *IQR/Median value over 0.15 implies a poor quality data set. SIGNIFICANT CHANGE FROM PRIOR EXAM: Significant change if liver stiffness measurement is 10% or greater from prior exam. OTHER CONSIDERATIONS: The stage of liver fibrosis may be overestimated in the setting of acute hepatitis, liver inflammation, elevated liver function tests, hepatic vascular congestion, obstructive cholestasis, non-fasting state, and infiltrative diseases such as amyloidosis and lymphoma. In some patients with NAFLD, the liver stiffness thresholds for compensated advanced chronic liver disease may be lower. In causes other than viral hepatitis and NAFLD, liver stiffness thresholds are not well established. Electronically signed by: Eron Marina MD 09/26/2024 10:40 AM EDT
== END 2024-09-26 08:38 | disposition home or self-care (01) ==
LOC: HO.US 08:37
PROVIDERS: PCP Family Medicine; Visit Provider Physician Assistant
DX: I10 Essential (primary) hypertension (principal); R79.89 Other specified abnormal findings of blood chemistry; E78.5 Hyperlipidemia, unspecified
CPT/HCPCS: 76700; 76981

== ENCOUNTER → 2024-09-26 09:22 | Outpatient (BNV) | payer OTHER, SELFPAY | PROVIDERS: PCP Family Medicine; Visit Provider Radiology Diagnostic Radiology | DX: R16.0 Hepatomegaly, not elsewhere classified (principal) | CPT/HCPCS: 76981 ==

== ENCOUNTER 2024-09-28 15:11 | Outpatient (AMB) | payer OTHER, SELFPAY ==
--- NOTE | 2024-09-28 15:22 | MHC.PC.OV ---
Vital Signs 09/28/24 15:25 Height 6 ft 2 in Weight 310 lb 2 oz BMI 39.8 BP 128/88 Blood Pressure Location Lt brachial Position Sitting Pulse 87 Pulse Source Pulse Oximeter Pulse Oximetry (%) 97 Oxygen Delivery Method Room Air Intake Visit Reasons: bp check Intake Note: Blood pressure check, liver ultrasound results. Sr Community Manager Required: No Allergies Penicillins Allergy (Severe, Verified 09/28/24 15:25) Anaphylaxis opiates Adverse Reaction (Severe, Uncoded 09/28/24 15:25) addiction temptaion Medication List - Last Reconciled 09/28/24 by Valarie Roberts PA-C allopurinol 300 mg PO DAILY amlodipine 5 mg PO DAILY Tobacco use date assessed: 09/28/24 Dental Screening Dental Screen Date: 02/26/23 HPI bp check HPI Details Patient is a 49-year-old male with a significant past history hyperlipidemia substance abuse, smoker, gout presenting today for a follow up. He normally follows with Dr. Rice. CV: Blood pressure today in the office is 128/88. He is on amlodipine 5 mg and tolerating this well. Monitoring his blood pressures at home and states that they are around 120/80 or less. Since our last visit he has lost weight with diet and exercise. He states that he is very motivated to continue to lose weight. At our last visit he was referred for a sleep study for suspected sleep apnea and is scheduled for October. Psych: Currently off of methadone for a year and a half. He does not like the idea of taking any medications. He is still smoking marijuana and tobacco. States that he wants to stop smoking cigarettes but does not want any medication for this. He is going to look into hypnosis. GI: Last labs did show elevated LFTs and he did have a liver ultrasound which was consistent with fatty liver and gallstones. He denies any abdominal pain or pain after eating. Musculoskeletal: He is on allopurinol for management of gout.. Endo: Last A1c came back at 5.8. Blood sugar has been elevated intermittently since 2022. States that he is [place] and eats a lot of carbohydrates. Colonoscopy: Overdue-[facility] Medical History (Updated 09/28/24 @ 15:36 by Valarie Roberts PA-C) No history of major surgery within 1 month No pertinent past medical history Surgical History No pertinent past surgical history Family History Paternal Grandfather Diabetes Father Lymph node cancer Social History (Updated 08/24/24 @ 14:20 by Arielle Monzon CMA) Household Members Other:: mother Housing: House Alcohol intake: current Comment: 1-2 time a year Patient Tobacco Use Status: Current everyday Tobacco user Cigarettes Per Day: 10 Years Smoked: 18 e-Cigarette/Vaping Use: Never Used Substance Use Type: Marijuana service: No Current occupational status: unemployed 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 [employer] Cognitive needs: No Hearing needs: No Vision needs: No Questionnaire Thrive Questionnaire Date Thrive assessed: 07/20/24 I am a: Patient What is your living situation today?: I have a steady place to live Within the past 12 months, did the food you bought not last and you didn't have the money to get more?: Never true Within the past 12 months, did you worry whether your food would run out before you got money to buy more?: Never true Do you have trouble paying for medicines?: No Do you have trouble getting transportation to medical appointments?: No Do you have trouble paying your heating and electricity bill?: No Do you have trouble taking care of your child, family member or friend?: No Do you have trouble with day-to-day activities such as bathing, preparing meals, shopping, managing finances, etc.?: No Are you currently unemployed and looking for a job?: No Are you interested in more education?: No Please select the resources that you would like help with: None Currently or been in a relationship where the following occur: No concerns reported THRIVE Score: 0 NEETA-7 AMB Questionnaire NEETA-7 Date NEETA - 7 assessed: 08/10/24 Source: Developed by Drs. Eron Gonzalez, Bhakti Neal, Vijay Wood and colleagues, with an educational jayesh from [employer]. Physical exam (Primary Care) Vital Signs: Last Vital Signs Pulse 87 09/28/24 15:25 BP 128/88 09/28/24 15:25 Pulse Ox 97 09/28/24 15:25 Oxygen Delivery Method Room Air 09/28/24 15:25 BMI result Body Mass Index 39.8 Tobacco/Smoking Status: Tobacco use Status Tobacco use date assessed 09/28/24 09/28/24 15:27 Patient Tobacco Use Status Current everyday Tobacco 09/28/24 15:24 e-Cigarette/Vaping Use Never Used 09/28/24 15:24 Thrive Assessment: Date of Thrive Assessment Date Thrive assessed 07/20/24 09/28/24 15:24 Currently or been in a relationship where the following occur: No concerns reported Const Orientation/consciousness: patient oriented x3 HENMT Ears: hearing grossly normal bilaterally Neck Thyroid: Thyroid normal Lymphatic: no lymphadenopathy noted Resp Auscultation: clear to auscultation bilaterally Cardio Rate: regular rate Rhythm: regular rhythm Heart sounds: S1 normal heart sound present and S2 normal heart sound present GI Inspection: Yes normal to inspection Palpation (GI): Soft to palpation and Other GI palpation findings present (nontender, no cva tenderness) Auscultation: normoactive bowel sounds Rectal Exam - Male: Yes deferred Skin General skin exam: no rashes or lesions noted Neuro General: patient oriented x3, gait normal and no focal motor deficits Results Reviewed Results Reviewed: [address] [address] Ultrasound Report Signed Patient: Andre Fuentes MR#: [id number] : 1975 Acct:[id number] Age/Sex: 49 / M ADM Date: 09/26/24 Loc: HO.US Attending Dr: Valarie Roberts PA-C Ordering Physician: Valarie Roberts Date of Service: 09/26/24 Procedure(s): US abdomen comp w elastography Accession Number(s): [id number] cc: Dell Rice MD; Valarei Roberts~ EXAMINATION: US ABDOMEN COMPLETE WITH LIVER ELASTOGRAPHY HISTORY: elevated LFTs TECHNIQUE: Real-time grayscale ultrasound imaging of the abdomen was performed and images were reviewed. COMPARISON: There are no prior studies for comparison. FINDINGS: Liver: The right lobe of the liver measures 21.5 cm in size. The left lobe of the liver measures 12.0 cm in size. The liver demonstrates increased echotexture, consistent with steatosis. No focal mass or intrahepatic biliary ductal dilatation is identified. There is normal hepatopedal flow in the portal vein. Ultrasound elastography of the liver was performed with 10 separate measurements of the liver parenchyma with the patient in the supine position. Measurements were obtained approximately 2 cm below Aziza's capsule and perpendicular to the capsule. Images are of satisfactory quality. The median shear wave velocity is 1.45 m/s. The interquartile range/median (IQR/median) is 0.41. Gallbladder and biliary tree: There is a shadowing calculus in the gallbladder. There is no wall thickening or pericholecystic fluid. There is no sonographic Anglin sign. The common bile duct is normal in caliber measuring 3 mm. Kidneys: The right kidney measures 13.0 cm in length. The left kidney measures 13.4 cm in length. The kidneys are unremarkable, without evidence of masses, hydronephrosis, or calculi. Pancreas: The pancreatic head, neck, and body are unremarkable. The pancreatic tail is obscured by bowel gas. Spleen: The spleen is normal in size and contour, measuring 12.4 cm in length. Abdominal aorta and inferior vena cava: The visualized portions of the abdominal aorta and inferior vena cava are normal in caliber. There is no free fluid in the abdomen. US/US abdomen comp w elastography IMPRESSION: Hepatomegaly and hepatic steatosis. Cholelithiasis. The median shear wave velocity in the liver is 1.45 m/s, corresponding to a median liver stiffness of 6.69 kPa. The IQR/median value is 0.41. This is indicative of a poor quality data set, and the estimated liver stiffness may be unreliable. Findings are indicative of a low elastography value which rules out advanced chronic liver disease in asymptomatic patients. Coding Level of Care Code Est Pt Level 4 (02925) Complex EM visit Add On G2211 Diagnoses Elevated LFTs R79.89 Gallstones K80.20 HTN (hypertension) I10 Prediabetes R73.03 Assessment & Plan Assessment & Plan (1) Elevated LFTs: Code(s): R79.89 - Other specified abnormal findings of blood chemistry Category: Medical Plan: We will recheck labs. He will continue with the healthier lifestyle. (2) Gallstones: Code(s): K80.20 - Calculus of gallbladder without cholecystitis without obstruction Category: Medical Plan: He is asymptomatic. Does not wish to consult with a general surgeon at this point. We reviewed signs and symptoms that would require emergent medical treatment. (3) HTN (hypertension): Code(s): I10 - Essential (primary) hypertension Category: Medical Plan: Continue current regimen. Congratulated him on the healthy lifestyle modifications. (4) Prediabetes: Code(s): R73.03 - Prediabetes Category: Medical Plan: As above. We will recheck labs in a couple of months. Orders: Orders Liver Panel 09/28/24 E78.5 - Hyperlipidemia, unspecified, I10 - Essential (primary) hypertension, K80.20 - Calculus of gallbladder without cholecystitis without obstruction, R73.03 - Prediabetes, R79.89 - Other specified abnormal findings of blood chemistry Ferritin 09/28/24 E78.5 - Hyperlipidemia, unspecified, I10 - Essential (primary) hypertension, K80.20 - Calculus of gallbladder without cholecystitis without obstruction, R73.03 - Prediabetes, R79.89 - Other specified abnormal findings of blood chemistry Complete Blood Count Auto Diff 09/28/24 E78.5 - Hyperlipidemia, unspecified, I10 - Essential (primary) hypertension, K80.20 - Calculus of gallbladder without cholecystitis without obstruction, R73.03 - Prediabetes, R79.89 - Other specified abnormal findings of blood chemistry Comprehensive [place]. Panel Fast 09/28/24 E78.5 - Hyperlipidemia, unspecified, I10 - Essential (primary) hypertension, K80.20 - Calculus of gallbladder without cholecystitis without obstruction, R73.03 - Prediabetes, R79.89 - Other specified abnormal findings of blood chemistry Lipid Panel 09/28/24 E78.5 - Hyperlipidemia, unspecified, I10 - Essential (primary) hypertension, K80.20 - Calculus of gallbladder without cholecystitis without obstruction, R73.03 - Prediabetes, R79.89 - Other specified abnormal findings of blood chemistry IRON PROFILE 09/28/24 E78.5 - Hyperlipidemia, unspecified, I10 - Essential (primary) hypertension, K80.20 - Calculus of gallbladder without cholecystitis without obstruction, R73.03 - Prediabetes, R79.89 - Other specified abnormal findings of blood chemistry Hemoglobin A1c 09/28/24 E78.5 - Hyperlipidemia, unspecified, I10 - Essential (primary) hypertension, K80.20 - Calculus of gallbladder without cholecystitis without obstruction, R73.01 - Impaired fasting glucose, R73.03 - Prediabetes, R79.89 - Other specified abnormal findings of blood chemistry Medications: Refilled amlodipine 5 mg PO DAILY 90 tabs 1RF
[2024-09-28 15:25] VITALS: BP 128/88; PULSE 87; O2SAT 97; BMI 39.8
== END 2024-09-28 15:44 | disposition home or self-care (01) ==
LOC: HO.HMCFM 15:12
PROVIDERS: PCP Family Medicine; Visit Provider Physician Assistant
DX: R79.89 Other specified abnormal findings of blood chemistry (principal); K80.20 Calculus of gallbladder without cholecystitis without obstruction; I10 Essential (primary) hypertension; R73.03 Prediabetes

== ENCOUNTER 2024-12-27 07:30 | Outpatient (REF) | payer OTHER, SELFPAY ==
[2024-12-27 11:26] LABS: MANUAL DIFF FLAG NO
[2024-12-27 11:31] LABS: Basophils Absolute Auto 0.1 X10*3/uL (0.0-0.2); Basophils Percent Auto 1.2 % (0-2); Eosinophils Absolute Auto 0.4 X10*3/uL (0.0-0.4); Eosinophils Percent Auto 4.7 % (0-4); Hemoglobin 17.2 g/dl (14.0-18.0); Imm Gran Abs Auto 0.02 X10*3/uL (0.00-0.03); Imm Gran Pct Auto 0.2 % (0.0-0.4); Lymphocytes Absolute Auto 2.8 X10*3/uL (1.2-4.9); Lymphocytes Percent Auto 30.5 % (20-40); Mean Corpuscular HGB Conc 33.7 g/dl (31.0-36.0); Mean Corpuscular Hemoglobin 30.4 pg (27.0-33.0); Mean Corpuscular Volume 90.1 fL (80.0-98.0); Mean Platelet Volume 12.3 fL (9.4-12.4); Monocytes Percent Auto 10.4 % (2-11); Neutrophils Absolute Auto 4.9 x10*3/uL (2.0-8.3); Platelet Count 249 X10*3/uL (160-400); Red Blood Count 5.66 X10*6/uL (4.60-5.80); Red Cell Distribution Width 13.1 % (11.0-16.0); White Blood Count 9.2 X10*3/uL (4.8-10.8)
[2024-12-27 11:41] LABS: Estimated Average Glucose 105 mg/dL; Hemoglobin A1C 149.3914 umol/L; Hemoglobin A1c % 5.3 % (<6.0)
[2024-12-27 11:58] LABS: Albumin Level 4.7 g/dL (3.5-5.0); Alkaline Phosphatase 56 U/L (39-117); Anion Gap 13 (12-20); Aspartate Amino Transferase 35 U/L (5-37); Bilirubin Direct 0.2 mg/dL (0.0-0.5); Bilirubin Total 0.2 mg/dL (0.0-1.0); Blood Urea Nitrogen 14 mg/dL (9-16); Calcium 9.8 mg/dL (8.4-10.2); Carbon Dioxide 25 mmol/L (22-29); Chloride 106 mmol/L (96-108); Cholesterol 138 mg/dL (<200); Estimated Glomerular Filt Rate > 60; Glucose Fasting 98 mg/dL (60-99); HDL Cholesterol 22 mg/dL (>40); Iron 59 mcg/dL (45-160); LDL Cholesterol Calculated 73 mg/dL (<100); Percent Iron Saturation 21 % (15-50); Potassium 4.2 mmol/L (3.3-5.1); Sodium 140 mmol/L (135-145); Total Iron Binding Capacity 280 mcg/dL (228-428); Total Protein 7.9 g/dL (6.5-8.0); Triglycerides 216 mg/dL (<150); Unsaturated Iron Binding 221 ug/dL
[2024-12-27 12:10] LABS: Ferritin 365 ng/mL (20-250)
[2024-12-27 12:33] LABS: Alanine Aminotransferase 43 U/L (0-40)
== END 2024-12-27 07:31 | disposition home or self-care (01) ==
LOC: HO.WFDLDS 07:30
PROVIDERS: Visit Provider Physician Assistant
DX: K80.20 Calculus of gallbladder without cholecystitis without obstruction (principal); R73.03 Prediabetes; I10 Essential (primary) hypertension; R79.89 Other specified abnormal findings of blood chemistry; E78.5 Hyperlipidemia, unspecified
CPT/HCPCS: 36415; 80053; 80061; 80076; 82248; 82728; 83036; 83540; 85025

== ENCOUNTER 2024-12-29 15:06 | Outpatient (AMB) | payer OTHER, SELFPAY ==
[2024-12-29 15:37] VITALS: BP 126/88; PULSE 95; RESP 16; O2SAT 96; BMI 36.6
--- NOTE | 2024-12-29 15:37 | A.OFFPC_ITS ---
Vital Signs 12/29/24 15:37 Height 6 ft 2 in Weight 285 lb BMI 36.6 BP 126/88 Blood Pressure Location Lt brachial Position Sitting Respiration 16 Pulse 95 Pulse Source Pulse Oximeter Pulse Oximetry (%) 96 Oxygen Delivery Method Room Air Intake Visit Reasons: labs and bp and weight Intake Note: Follow up labs and weight. 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: No Allergies Penicillins Allergy (Severe, Verified 12/29/24 15:38) Anaphylaxis opiates Adverse Reaction (Severe, Uncoded 12/29/24 15:38) addiction temptaion Medication List - Last Reconciled 12/29/24 by Valarie Roberts PA-C allopurinol 300 mg PO DAILY amlodipine 5 mg PO DAILY Tobacco use date assessed: 12/29/24 Dental Screening Dental Screen Date: 12/29/24 Did you have a dental visit in the last 12 months?: Yes Did you have a dental problem in the last 6 months where you did not have access to dental care?: No Was dental information given to patient?: Patient has dentist HPI labs and bp and weight HPI Details Patient is a 49-year-old male with a significant past history hyperlipidemia substance abuse, smoker, gout presenting today for a follow up. CV: Blood pressure today in the office is 126/88. He is on amlodipine 5 mg and tolerating this well. . Since our last visit he has lost weight with diet and exercise. He states that he is very motivated to continue to lose weight. He is down about 40 lb from diet and exercise. Psych: Currently off of methadone for a year and a half. He does not like the idea of taking any medications. He is still smoking marijuana and tobacco. States that he wants to stop smoking cigarettes and tells me he is finally ready to do this. Not interested in Chantix. GI: Last labs did show elevated LFTs and he did have a liver ultrasound which was consistent with fatty liver and gallstones. He states that he is now noticing some right upper quadrant pain after eating. States that it feels like a cramping sensation. Musculoskeletal: He is on allopurinol for management of gout. He has a Medrol Dosepak for flare-ups of gallop but is wondering if he can get colchicine instead. He states that his boss has colchicine and he recently took it for a gout flare-up in it was very effective. The steroids make him stay up all night. He states that he rarely ever has a gouty exacerbation. Endo: When I 1st saw him his A1c was 5.8 and he states that with all the diet changes he has done his blood sugars have been normal. He has cut back on carbohydrates. His A1c from 2 days ago was 5.3. Colonoscopy: Overdue-he is scheduled [facility] Medical History (Updated 09/28/24 @ 15:36 by Valarie Roberts PA-C) No history of major surgery within 1 month No pertinent past medical history Surgical History No pertinent past surgical history Family History Paternal Grandfather Diabetes Father Lymph node cancer Social History (Updated 12/29/24 @ 15:43 by Arielle Monzon CMA) Household Members Other:: mother Housing: House Alcohol intake: current Comment: 1-2 time a year Patient Tobacco Use Status: Current everyday Tobacco user Cigarettes Per Day: 10 Years Smoked: 18 e-Cigarette/Vaping Use: Never Used Substance Use Type: Marijuana service: No Current occupational status: unemployed Current occupation: [employer] department [employer] Cognitive needs: No Hearing needs: No Vision needs: No Questionnaire Thrive Questionnaire Date Thrive assessed: 07/20/24 I am a: Patient What is your living situation today?: I have a steady place to live Within the past 12 months, did the food you bought not last and you didn't have the money to get more?: Never true Within the past 12 months, did you worry whether your food would run out before you got money to buy more?: Never true Do you have trouble paying for medicines?: No Do you have trouble getting transportation to medical appointments?: No Do you have trouble paying your heating and electricity bill?: No Do you have trouble taking care of your child, family member or friend?: No Do you have trouble with day-to-day activities such as bathing, preparing meals, shopping, managing finances, etc.?: No Are you currently unemployed and looking for a job?: No Are you interested in more education?: No Please select the resources that you would like help with: None Currently or been in a relationship where the following occur: No concerns reported THRIVE Score: 0 AUDIT C Alcohol Use Questionnaire (AUDIT-C) 1. How often do you have a drink containing alcohol?: Monthly or less (couple times a year) 2. How many drinks containing alcohol do you have on a typical day when you are drinking?: 1 or 2 3. How often do you have six or more drinks on one occasion?: Never Total Score: 1 NEETA-7 AMB Questionnaire NEETA-7 Date NEETA - 7 assessed: 08/10/24 Source: Developed by Drs. Eron Gonzalez, Bhakti Neal, Vijay Wood and colleagues, with an educational jayesh from [employer]. Physical exam (Primary Care) Vital Signs: Last Vital Signs Pulse 95 12/29/24 15:37 Resp 16 12/29/24 15:37 BP 126/88 12/29/24 15:37 Pulse Ox 96 12/29/24 15:37 Oxygen Delivery Method Room Air 12/29/24 15:37 BMI result Body Mass Index 36.6 Tobacco/Smoking Status: Tobacco use Status Tobacco use date assessed 12/29/24 12/29/24 15:43 Patient Tobacco Use Status Current everyday Tobacco 12/29/24 15:43 e-Cigarette/Vaping Use Never Used 12/29/24 15:43 Thrive Assessment: Date of Thrive Assessment Date Thrive assessed 07/20/24 12/29/24 15:43 Currently or been in a relationship where the following occur: No concerns reported Const Orientation/consciousness: patient oriented x3 HENMT Ears: hearing grossly normal bilaterally Neck Thyroid: Thyroid normal Lymphatic: no lymphadenopathy noted Resp Auscultation: clear to auscultation bilaterally Cardio Rate: regular rate Rhythm: regular rhythm Heart sounds: S1 normal heart sound present and S2 normal heart sound present GI Inspection: Yes normal to inspection Palpation (GI): Soft to palpation and Other GI palpation findings present (nontender, no cva tenderness) Auscultation: normoactive bowel sounds Rectal Exam - Male: Yes deferred Skin General skin exam: no rashes or lesions noted Neuro General: patient oriented x3, gait normal and no focal motor deficits Coding Level of Care Code Est Pt Level 4 (41086) Complex EM visit Add On G2211 Diagnoses Gallstones K80.20 HTN (hypertension) I10 Prediabetes R73.03 Gout M10.9 Smoker F17.200 Assessment & Plan Assessment & Plan (1) Gallstones: Code(s): K80.20 - Calculus of gallbladder without cholecystitis without obstruction Category: Medical Plan: Referral to General surgery. Warning signs of abdominal pain that would require emergent medical treatment were discussed. (2) HTN (hypertension): Code(s): I10 - Essential (primary) hypertension Category: Medical Plan: WNL. Continue current regimen (3) Prediabetes: Code(s): R73.03 - Prediabetes Category: Medical Plan: Resolves with diet and lifestyle modifications (4) Gout: Code(s): M10.9 - Gout, unspecified Category: Medical Plan: Colchicine ordered to use as needed. Discussed risks and benefits and adverse effects of this medication. (5) Smoker: Code(s): F17.200 - Nicotine dependence, unspecified, uncomplicated Category: Social Hx Plan: We will start Nicoderm patches. Orders: Orders Basic Metabolic Panel Today I10 - Essential (primary) hypertension, R73.03 - Prediabetes Liver Panel Today I10 - Essential (primary) hypertension, R73.03 - Prediabetes Hemoglobin A1c Today I10 - Essential (primary) hypertension, R73.01 - Impaired fasting glucose, R73.03 - Prediabetes UA CC w/rflx Micro + Cult Today I10 - Essential (primary) hypertension, R73.03 - Prediabetes, Z13.220 - Encounter for screening for lipoid disorders Microalbumin, Random (w Creat) Today I10 - Essential (primary) hypertension, R73.03 - Prediabetes Referrals General Surgery Referral K80.20 - Calculus of gallbladder without cholecystitis without obstruction Medications: New colchicine 0.6 mg PO BID 20 caps 0RF 10 days nicotine (Nicoderm CQ) 1 patch transdermal Q24H 28 ea 1RF
== END 2024-12-29 16:01 | disposition home or self-care (01) ==
LOC: HO.HMCFM 15:07
PROVIDERS: PCP Physician Assistant; Visit Provider Physician Assistant
DX: K80.20 Calculus of gallbladder without cholecystitis without obstruction (principal); I10 Essential (primary) hypertension; R73.03 Prediabetes; M10.9 Gout, unspecified; F17.200 Nicotine dependence, unspecified, uncomplicated

== ENCOUNTER → 2024-12-29 15:06 | Outpatient (BNVA) | payer OTHER, SELFPAY | PROVIDERS: PCP Physician Assistant; Visit Provider Physician Assistant | DX: Z13.89 Encounter for screening for other disorder (principal) ==

== ENCOUNTER 2025-02-09 15:01 | Outpatient (AMB) | payer OTHER, SELFPAY ==
--- NOTE | 2025-02-09 15:19 | A.OFFVIS_ITS ---
Vital Signs 02/09/25 15:22 Height 6 ft 2 in Weight 285 lb BMI 36.6 BP 129/82 Blood Pressure Location Rt brachial Position Sitting Pulse 84 Intake Visit Reasons: gallstones Intake Note: Patient referred by pcp Valarie Roberts PA-C for evaluation and treatment of gallstones. Patient c/o: RUQ pain. Denies nausea, vomiting, diarrhea, constipation. Abdomen US: 09-26-2024 Supervisor Industrial Arts Education Required: No Accompanied by: mother Janey Eastman Allergies Penicillins Allergy (Severe, Verified 02/09/25 15:20) Anaphylaxis opiates Adverse Reaction (Severe, Uncoded 02/09/25 15:20) addiction temptaion Medication List - Last Reconciled 02/09/25 by Otilio Rao MD allopurinol 300 mg PO DAILY amlodipine 5 mg PO DAILY colchicine 0.6 mg PO BID 10 days nicotine (Nicoderm CQ) 1 patch transdermal Q24H HPI HPI gallstones: Details: 49-year-old male referred for incidental finding of gallstones. He had undergone liver elastography last September, because of mildly elevated LFTs. He was noted to have gallstones with a signs of cholecystitis He said he has never had any right upper quadrant pain. He denies any GI complaints. He says that he was prediabetic before so he has started to lose weight the past few months and says that his hemoglobin A1c has improved significantly. He said that he has lost about 50 lb of weight so far this year. [facility] Medical History No history of major surgery within 1 month No pertinent past medical history Surgical History No pertinent past surgical history Family History Paternal Grandfather Diabetes Father Lymph node cancer Social History Household Members Other:: mother Housing: House Alcohol intake: current Comment: 1-2 time a year Patient Tobacco Use Status: Current everyday Tobacco user Cigarettes Per Day: 10 Years Smoked: 18 e-Cigarette/Vaping Use: Never Used Substance Use Type: Marijuana service: No Current occupational status: unemployed Current occupation: [employer] Cognitive needs: No Hearing needs: No Vision needs: No Review of Systems Const Denies chills and Denies fever(s) Card Denies chest pain, Denies dyspnea and Denies dyspnea on exertion Resp Denies cough, Denies dyspnea and Denies dyspnea on exertion GI Denies hematochezia and Denies change in bowel habits Denies hematuria and Denies difficulty urinating Musc Denies back pain and Denies limited range of motion Neuro Denies focal weakness and Denies convulsions Psych Denies depression and Denies mood swings Physical Exam Vital Signs: Last Vital Signs Pulse 84 02/09/25 15:22 BP 129/82 02/09/25 15:22 BMI result Body Mass Index 36.6 Const General: comfortable and no acute distress Orientation/consciousness: patient oriented x3 Neck Neck: Yes no lymphadenopathy Resp Auscultation: clear to auscultation bilaterally Cardio Rhythm: regular rhythm GI Palpation (GI): Soft to palpation, nontender and no guarding Neuro General: patient oriented x3 Assessment & Plan Assessment & Plan (1) Gallstones: Code(s): K80.20 - Calculus of gallbladder without cholecystitis without obstruction Category: Medical Plan: He had incidental findings of gallstones on a liver elastography done last September, He denies any significant symptoms that may be related to his gallstones. He denies any right upper quadrant pain. Denies GI complaints. In the absence of symptoms that may be related to his gallbladder, I would hold off on any surgical intervention. I did tell him what to watch out for regards to his gallstones including right upper quadrant pain. He admits to pain on the lower most ribs on the right flank as well as the posterior chest but this a appears to be unrelated to his gallstones I also had a long talk with him about importance of weight control and healthy lifestyle. I explained to him that she to come back to the office if he has any concerns about his gallstones including symptoms. He is comfortable with the plan. His mother was with him during the visit. Coding Level of Care Code New Pt Level 3 (36920) Diagnoses Gallstones K80.20
[2025-02-09 15:22] VITALS: BP 129/82; PULSE 84; BMI 36.6
== END 2025-02-09 15:37 | disposition home or self-care (01) ==
LOC: HO.HGS 15:02
PROVIDERS: PCP Physician Assistant; Visit Provider Surgery
DX: K80.20 Calculus of gallbladder without cholecystitis without obstruction (principal)
CPT/HCPCS: 99203

== ENCOUNTER 2025-05-03 15:48 | Outpatient (AMB) | payer OTHER, SELFPAY ==
--- NOTE | 2025-05-03 15:51 | MHC.OFFVIS ---
Vital Signs 05/03/25 15:52 Height 6 ft 2 in Weight 263 lb BMI 33.8 BP 158/88 H Blood Pressure Location Rt brachial Position Sitting Pulse 92 Pulse Source Pulse Oximeter Pulse Oximetry (%) 97 Oxygen Delivery Method Room Air Intake Visit Reasons: Colonoscopy Screening Intake Note: New pt for initial colo consult. CC: Pt denies any GI sx or concerns at this time. No pertinent surgical or FMHx. 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 male here today for pre colonoscopy screening.? Patient was sent to us by his PCP.? This is his first colonoscopy screening.? Patient denies any gastrointestinal symptoms in the past or at present.? Denies any personal or family history of gastrointestinal disease, colon polyps, or CRC.? Denies history of difficulty with sedation or anesthesia in the past.? Negative for history of sleep apnea.? Denies any history of cardiac, renal, pulmonary, or hepatic disease.?? No history of infectious? diseases like hepatitis A, B, C, HIV or tuberculosis.? Patient is not on any anticoagulation [facility] Medical History No history of major surgery within 1 month No pertinent past medical history Surgical History No pertinent past surgical history Family History Paternal Grandfather Diabetes Father Lymph node cancer Social History (Updated 05/03/25 @ 15:57 by JOÃO Smith) Household Members Other:: mother Housing: House Alcohol intake: current Comment: 1-2 time a year Patient Tobacco Use Status: Current everyday Tobacco user Cigarettes Per Day: 5 Years Smoked: 18 e-Cigarette/Vaping Use: Never Used Substance Use Type: Marijuana service: No Current occupational status: unemployed Current occupation: [employer] Cognitive needs: No Hearing needs: No Vision needs: No Review of Systems Const Denies weight gain and Denies weight loss ENT Reports no additional complaints, Denies dysphagia and Denies odynophagia Card Reports no additional complaints Resp Reports no additional complaints GI Denies abdominal pain, Denies belching, Denies melena, Denies bloating, Denies change in bowel habits, Denies dysphagia, Denies excessive flatus, Denies dyspepsia, Denies heartburn, Denies diarrhea, Denies loose stools, Denies nausea, Denies odynophagia and Denies vomiting Reports no additional complaints Musc Reports no additional complaints Neuro Reports no additional complaints Psych Reports no additional complaints Endo Reports no additional complaints Physical Exam Vital Signs: Last Vital Signs Pulse 92 05/03/25 15:52 BP 158/88 H 05/03/25 15:52 Pulse Ox 97 05/03/25 15:52 Oxygen Delivery Method Room Air 05/03/25 15:52 BMI result Body Mass Index 33.8 Const General: healthy appearing, no acute distress and well developed Nutritional Appearance: well nourished and obese Orientation/consciousness: patient oriented x3 Resp Effort & Inspection: normal respiratory effort, able to speak in complete sentences, no tracheal deviation and symmetric chest movement Auscultation: clear to auscultation bilaterally Cardio Rate: regular rate GI Inspection: Yes normal to inspection, No distended and Yes obesity Palpation (GI): Soft to palpation, not firm, nontender and No hepatosplenomegaly present Auscultation: normal bowel sounds General: Yes no CVA tenderness Back/Spine/Pelvis Back: no CVA tenderness Skin General skin exam: elasticity normal, turgor normal and dry skin Neuro General: patient oriented x3 Psych Appearance: grossly normal Mental Status: mental status grossly normal Assessment & Plan Assessment & Plan (1) Screen for colon cancer: Code(s): Z12.11 - Encounter for screening for malignant neoplasm of colon Plan Patient denies any GI, cardiac or respiratory symptoms.? Denies any issues with anesthesia in the past.? Denies any history of sleep apnea.? No history infectious diseases in the past or present.? Not on any anticoagulation therapy.? No family or personal history of colon cancer or polyps.? Patient denies melena, hematochezia, unintentional weight loss or ribbon like stools.? Discussed at length the pre-procedure,? prep, diet & medications as well as what to expect prior, during and after the procedure.?? Stressed the importance of good bowel prep.? Recommended the use of Vaseline or Calmoseptine OTC & baby wipes with bowel movements to promote comfort.? ?Patient verbalizes understanding and agrees to plan of care.? He was given the opportunity to ask questions and all questions answered.? We will see him after the procedure.? Orders: Referrals GI Procedure Notification Z12.11 - Encounter for screening for malignant neoplasm of colon Medications: New bisacodyl (Dulcolax (bisacodyl)) take 4 tabs at noon the day before your colonoscopy 20 mg (4 x 5 mg) PO ONCE 4 tabs 0RF constipation 1 day Z12.11 - Encounter for screening for malignant neoplasm of colon polyethylene glycol 3350 (Miralax) As directed by gastroenterology department at [facility] 238 grams PO ONCE 238 grams 0RF Z12.11 - Encounter for screening for malignant neoplasm of colon Coding Level of Care Code New Pt Level 3 (06902) Diagnoses Screen for colon cancer Z12.11 Time Spent (min) 40 Comment 30 minutes spent with patient and additional 10 minutes spent reviewing his records
[2025-05-03 15:52] VITALS: BP 158/88; PULSE 92; O2SAT 97; BMI 33.8
== END 2025-05-04 17:00 | disposition home or self-care (01) ==
LOC: HO.HGI 15:48
PROVIDERS: PCP Physician Assistant; Visit Provider Nurse Practitioner Family
DX: Z01.818 Encounter for other preprocedural examination (principal); Z12.11 Encounter for screening for malignant neoplasm of colon
CPT/HCPCS: 99203

== ENCOUNTER 2025-07-05 12:48 | Outpatient (AMB) | payer OTHER, SELFPAY ==
--- NOTE | 2025-07-05 12:56 | A.OFFPC_ITS ---
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: No Allergies Penicillins Allergy (Severe, Verified 07/05/25 12:57) Anaphylaxis opiates Adverse Reaction (Severe, Uncoded 07/05/25 12:57) addiction temptaion Medication List - Last Reconciled 07/05/25 by Valarie Roberts PA-C allopurinol 300 mg PO DAILY amlodipine 5 mg PO DAILY bisacodyl (Dulcolax (bisacodyl)) 20 mg (4 x 5 mg) PO ONCE 1 day colchicine 0.6 mg PO BID PRN nicotine (Nicoderm CQ) 1 patch transdermal Q24H polyethylene glycol 3350 (Miralax) 238 grams PO ONCE Tobacco use date assessed: 12/29/24 Dental Screening Dental Screen Date: 12/29/24 HPI bp check HPI Details Patient is a 50-year-old male with a significant past history hyperlipidemia substance abuse, smoker, gout presenting today for a follow up. CV: Blood pressure today in the office is 136/86. He is on amlodipine 5 mg and tolerating this well. . Since our last visit he has lost weight with diet and exercise. He states that he is very motivated to lose weight. He recently put weight on from holidays. Derm: he has thickened yellow toenails. Psych: Currently off of methadone. He does not like the idea of taking any medications. He is still smoking marijuana and tobacco. States that he wants to stop smoking cigarettes and tells me he is finally ready to do this. Not interested in Chantix. GI: Last labs did show elevated LFTs and he did have a liver ultrasound which was consistent with fatty liver and gallstones. Musculoskeletal: He is on allopurinol for management of gout. Endo: his A1c was 5.3 and he states that with all the diet changes he has done his blood sugars have been normal. He has cut back on carbohydrates. Colonoscopy: Overdue- booked 08/14 [facility] Medical History No history of major surgery within 1 month No pertinent past medical history Surgical History No pertinent past surgical history Family History Paternal Grandfather Diabetes Father Lymph node cancer Social History (Updated 05/03/25 @ 15:57 by JOÃO Smith) Household Members Other:: mother Housing: House Alcohol intake: current Comment: 1-2 time a year Patient Tobacco Use Status: Current everyday Tobacco user Cigarettes Per Day: 5 Years Smoked: 18 e-Cigarette/Vaping Use: Never Used Substance Use Type: Marijuana service: No Current occupational status: unemployed Current occupation: [employer] Cognitive needs: No Hearing needs: No Vision needs: No Questionnaire Thrive Questionnaire Date Thrive assessed: 07/20/24 I am a: Patient What is your living situation today?: I have a steady place to live Within the past 12 months, did the food you bought not last and you didn't have the money to get more?: Never true Within the past 12 months, did you worry whether your food would run out before you got money to buy more?: Never true Do you have trouble paying for medicines?: No Do you have trouble getting transportation to medical appointments?: No Do you have trouble paying your heating and electricity bill?: No Do you have trouble taking care of your child, family member or friend?: No Do you have trouble with day-to-day activities such as bathing, preparing meals, shopping, managing finances, etc.?: No Are you currently unemployed and looking for a job?: No Are you interested in more education?: No Currently or been in a relationship where the following occur: No concerns reported THRIVE Score: 0 NEETA-7 AMB Questionnaire NEETA-7 Date NEETA - 7 assessed: 08/10/24 Source: Developed by Drs. Eron Gonzalez, Bhakti Neal, Vijay Wood and colleagues, with an educational jayesh from [employer]. Physical exam (Primary Care) Vital Signs: Last Vital Signs Pulse 81 07/05/25 12:57 Resp 16 07/05/25 12:57 BP 136/86 07/05/25 12:57 Pulse Ox 96 07/05/25 12:57 Oxygen Delivery Method Room Air 07/05/25 12:57 BMI result Body Mass Index 36.1 Tobacco/Smoking Status: Tobacco use Status Tobacco use date assessed 12/29/24 07/05/25 13:02 Patient Tobacco Use Status Current everyday Tobacco 07/05/25 13:02 e-Cigarette/Vaping Use Never Used 07/05/25 13:02 Thrive Assessment: Date of Thrive Assessment Date Thrive assessed 07/20/24 07/05/25 13:02 Currently or been in a relationship where the following occur: No concerns reported Const Orientation/consciousness: patient oriented x3 HENMT Ears: hearing grossly normal bilaterally Neck Thyroid: Thyroid normal Lymphatic: no lymphadenopathy noted Resp Auscultation: clear to auscultation bilaterally Cardio Rate: regular rate Rhythm: regular rhythm Heart sounds: S1 normal heart sound present and S2 normal heart sound present Skin Other: Toenails are thickened and yellow Neuro General: patient oriented x3, gait normal and no focal motor deficits Coding Level of Care Code Est Pt Level 4 (68346) Add On Problem Visit Only Diagnoses Onychomycosis B35.1 Prediabetes R73.03 Dyslipidemia E78.5 HTN (hypertension) I10 Assessment & Plan Assessment & Plan (1) Onychomycosis: Code(s): B35.1 - Tinea unguium Category: Medical Plan: Referral to podiatry We will try Penlac solution He has already tried clotrimazole cream (2) Prediabetes: Code(s): R73.03 - Prediabetes Category: Medical Plan: We will monitor with his recent weight gain (3) Dyslipidemia: Code(s): E78.5 - Hyperlipidemia, unspecified Category: Medical Plan: Labs ordered (4) HTN (hypertension): Code(s): I10 - Essential (primary) hypertension Category: Medical Plan: Continue current regimen Orders: Referrals Podiatry Referral B35.1 - Tinea unguium Medications: New ciclopirox 8% 1 appl topical BEDTIME 6.6 mL 1RF 4 weeks
[2025-07-05 12:57] VITALS: BP 136/86; PULSE 81; RESP 16; O2SAT 96; BMI 36.1
== END 2025-07-05 13:18 | disposition home or self-care (01) ==
LOC: HO.HMCFM 12:49
PROVIDERS: PCP Physician Assistant; Visit Provider Physician Assistant
DX: B35.1 Tinea unguium (principal); R73.03 Prediabetes; E78.5 Hyperlipidemia, unspecified; I10 Essential (primary) hypertension

== ENCOUNTER 2025-07-05 12:48 | Outpatient (REF) | payer OTHER, SELFPAY ==
[2025-07-05 17:19] LABS: Appearance Urine Clear; Glucose Urine UA Negative (Negative); PH 5.0 (5.0-9.0); Specific Gravity - Urine 1.020 (1.005-1.025)
[2025-07-05 17:24] LABS: Alanine Aminotransferase 51 U/L (0-40); Albumin Level 4.9 g/dL (3.5-5.0); Alkaline Phosphatase 60 U/L (39-117); Anion Gap 13 (12-20); Aspartate Amino Transferase 32 U/L (5-37); Blood Urea Nitrogen 16 mg/dL (9-16); Calcium 10.1 mg/dL (8.4-10.2); Carbon Dioxide 24 mmol/L (22-29); Chloride 107 mmol/L (96-108); Estimated Glomerular Filt Rate > 60; Potassium 4.4 mmol/L (3.3-5.1); Sodium 140 mmol/L (135-145); Total Protein 8.2 g/dL (6.5-8.0)
[2025-07-05 17:38] LABS: Microalbum/Creatinine Ratio Ur 5.4 ug/mg cr (<30)
== END 2025-07-05 12:49 | disposition home or self-care (01) ==
LOC: HO.WFDLDS 12:48
PROVIDERS: PCP Physician Assistant; Visit Provider Physician Assistant
DX: I10 Essential (primary) hypertension (principal); B35.1 Tinea unguium; R73.03 Prediabetes; R73.01 Impaired fasting glucose; E78.5 Hyperlipidemia, unspecified; Z13.220 Encounter for screening for lipoid disorders
CPT/HCPCS: 36415; 80048; 80076; 81003; 82043; 82570; 83036